=== PATIENT | male | born 2000 | race Caucasian/White ===

== ENCOUNTER 2024-03-13 20:07 | Emergency (ER) | payer SELFPAY ==
[2024-03-13 20:09] VITALS: BP 133/88; BMI 22.4
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
[2024-03-13 22:07] VITALS: BP 121/64
[2024-03-14 20:34] LABS: Hepatitis B Surface Antigen Negative (Negative)
[2024-03-14 20:52] LABS: Hepatitis B Surface Antibody Positive; Hepatitis C Antibody Negative (Negative)
[2024-03-15 12:30] LABS: HIV Combo Negative (Negative)
== END 2024-03-13 22:36 | disposition home or self-care (01) ==
LOC: EMR 20:07
PROVIDERS: Student in an Organized Health Care Education/Training Program; EMERGENCY PHYSICIAN Emergency Medicine; FAMILY PHYSICIAN Family Medicine
DX: S51.831A Puncture wound without foreign body of right forearm, initial encounter (principal); Y04.1XXA Assault by human bite, initial encounter
CPT/HCPCS: 99283; 86706; 86803; 87340; 87389

== ENCOUNTER 2024-03-14 15:35 | Emergency (ER) | payer SELFPAY ==
[2024-03-14 15:38] VITALS: BP 142/88
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
[2024-03-14] MEDS: ADACEL 0.5 ML IM (17:29)
[2024-03-14 17:31] VITALS: BP 103/65
== END 2024-03-14 17:36 | disposition home or self-care (01) ==
LOC: EMR 15:35
PROVIDERS: EMERGENCY PHYSICIAN Emergency Medicine
DX: S51.831A Puncture wound without foreign body of right forearm, initial encounter (principal); Y04.1XXA Assault by human bite, initial encounter; Z23 Encounter for immunization
CPT/HCPCS: 99282; 90471; 90715